=== PATIENT | female | born 1980 | race Caucasian/White ===

== ENCOUNTER → 2018-05-20 | Outpatient (CLI) | payer BC | END | disposition home or self-care (01) | LOC: LAB 06:30 → LAB SHORT 06:30 → LAB FUT 07-23 10:55 → EDSTATUS 07-23 10:55 | DX: K51.90 Ulcerative colitis, unspecified, without complications (principal) | CPT/HCPCS: 83993 ==

== ENCOUNTER 2019-01-30 00:18 | Day surgery (SDC) | payer BC ==
[2019-01-30] MEDS ORDERED: AZAT50 PO (14:44)
[2019-01-30] MEDS ORDERED: IMITREX100 MG PO (14:46)
[2019-01-30] MEDS ORDERED: MESALAMINE1.2 GM PO (14:47)
[2019-01-30] MEDS ORDERED: Zolpidem Tartrat5 MG PO (14:48)
[2019-01-30] MEDS ORDERED: TRIDERM28.4 GM TOP (14:49)
[2019-01-30] MEDS ORDERED: FLUC150A PO (14:49)
[2019-01-30] MEDS ORDERED: Remicade100 MG IV (14:52)
[2019-01-30] MEDS ORDERED: AMIT10 PO ×2 (15:12→15:13)
--- NOTE | 2019-01-30 15:42 | NUR ---
PT REPORTS SHE DOES NOT TAKE PRE MEDS.
[2019-01-30] MEDS ORDERED: THERA1 EACH PO (15:43)
[2019-01-30] MEDS ORDERED: OYSTER SHELL 51 EACH (15:44)
[2019-01-30] MEDS ORDERED: Vitamin D2000 UNIT PO (15:44)
[2019-01-30] MEDS ORDERED: EYE HEALTH ADU1 EACH PO (15:45)
== END 2019-01-30 17:20 | disposition home or self-care (01) ==
LOC: ATC 00:18
DX: K51.90 Ulcerative colitis, unspecified, without complications (principal); G43.909 Migraine, unspecified, not intractable, without status migrainosus; Z88.2 Allergy status to sulfonamides; Z79.899 Other long term (current) drug therapy
CPT/HCPCS: 96413; 96415; J1745; J7050

== ENCOUNTER 2019-03-27 02:15 | Day surgery (SDC) | payer BC ==
[~2019-03-27 02:15] MED LIST: AMIT10 PO; AZAT50 PO; EYE HEALTH ADU1 EACH PO; FLUC150A PO; IMITREX100 MG PO; MESALAMINE1.2 GM PO; OYSTER SHELL 51 EACH; Remicade100 MG IV; THERA1 EACH PO; TRIDERM28.4 GM TOP; Vitamin D2000 UNIT PO; Zolpidem Tartrat5 MG PO
--- NOTE | 2019-03-27 14:31 | NUR ---
Shellie declined her pre-medications today.
== END 2019-03-27 17:01 | disposition home or self-care (01) ==
LOC: ATC 02:15
DX: K51.90 Ulcerative colitis, unspecified, without complications (principal); R21 Rash and other nonspecific skin eruption; Z79.899 Other long term (current) drug therapy; Z88.2 Allergy status to sulfonamides
CPT/HCPCS: J1745; J7050

== ENCOUNTER 2019-04-30 13:17 | Emergency (ER) | payer BC ==
[~2019-04-30] VITALS: Ht 170.2 cm; Wt 59.9 kg
[2019-04-30 14:11] LABS: BASOPHILS ABSOLUTE AUTO 0.01 K/mm3 (0.00-0.23); BASOPHILS PERCENT AUTO 0 % (0-2); EOSINOPHILS ABSOLUTE AUTO 0.06 K/mm3 (0.00-0.68); EOSINOPHILS PERCENT AUTO 1 % (0-6); Hematocrit 37.4 % (33.0-51.0); Hemoglobin 12.5 g/dL (11.5-16.0); IMMATURE GRAN ABSOLUTE AUTO 0.03 K/mm3 (0.00-0.10); IMMATURE GRAN PERCENT AUTO 0 % (0-1); LYMPHOCYTES ABSOLUTE AUTO 1.26 K/mm3 (0.84-5.20); LYMPHOCYTES PERCENT AUTO 18 % (21-46); MONOCYTES ABSOLUTE AUTO 0.42 K/mm3 (0.16-1.47); MONOCYTES PERCENT AUTO 6 % (4-13); Mean Corpuscular HGB 34.4 pg (26.0-34.0); Mean Corpuscular HGB Conc 33.4 g/dL (31.5-36.5); Mean Corpuscular Volume 103 fL (80-100); Mean Platelet Volume 11.2 fL (9.1-12.4); NEUTROPHILS ABSOLUTE AUTO 5.27 K/mm3 (1.96-9.15); NEUTROPHILS PERCENT AUTO 75 % (41-73); Platelet Count 255 K/mm3 (150-400); RDW Coefficient Variation 14.3 % (11.7-14.2); RDW Standard Deviation 54.5 fL (35.1-46.3); Red Blood Cell Count 3.63 M/mm3 (3.80-5.20); White Blood Cell Count 7.05 K/mm3 (4.00-11.30)
[2019-04-30 14:30] LABS: Anion Gap 3 mmol/L (6-16); Blood Urea Nitrogen 6 mg/dL (8-24); CO2, Blood 28 mmol/L (21-32); Calcium, Blood 8.6 mg/dL (8.5-10.1); Chloride, Blood 106 mmol/L (98-108); Glucose, Blood 103 mg/dL (70-99); Potassium, Blood 3.7 mmol/L (3.5-5.5); Sodium, Blood 137 mmol/L (136-145)
[2019-04-30 14:34] LABS: Bun/Creatinine Ratio 11.8 (12.0-20.0); Creatinine, Blood 0.51 mg/dL (0.40-1.00); Glomerular Filtration Rate >60 (60-)
[2019-04-30] MEDS ORDERED: Roxicodone5 MG PO (16:50)
== END 2019-04-30 17:32 | disposition home or self-care (01) ==
LOC: ER 13:17
PROVIDERS: Physician Assistant
DX: G89.18 Other acute postprocedural pain (principal); R10.9 Unspecified abdominal pain; G43.909 Migraine, unspecified, not intractable, without status migrainosus; Z79.899 Other long term (current) drug therapy
CPT/HCPCS: 36415; 74176; 76856; 80048; 85025; 96361; 96374; 96375; 96376; 99284-25; J1170; J2405; J7030

== ENCOUNTER 2019-05-22 01:21 | Day surgery (SDC) | payer BC ==
[~2019-05-22 01:21] MED LIST changes: +Roxicodone5 MG PO
== END 2019-05-22 16:59 | disposition home or self-care (01) ==
LOC: ATC 01:21
DX: K51.90 Ulcerative colitis, unspecified, without complications (principal); M19.90 Unspecified osteoarthritis, unspecified site; G43.909 Migraine, unspecified, not intractable, without status migrainosus; Z79.899 Other long term (current) drug therapy
CPT/HCPCS: J1720; J1745; J7050

== ENCOUNTER 2019-07-17 00:51 | Day surgery (SDC) | payer BC | END 2019-07-17 16:49 | disposition home or self-care (01) | LOC: ATC 00:51 | DX: K51.90 Ulcerative colitis, unspecified, without complications (principal); Z79.899 Other long term (current) drug therapy; Z88.2 Allergy status to sulfonamides | CPT/HCPCS: 96413; 96415; J1745; J7050 ==

== ENCOUNTER 2019-11-06 00:39 | Day surgery (SDC) | payer BC | END 2019-11-06 16:55 | disposition home or self-care (01) | LOC: ATC 00:39 | DX: K51.90 Ulcerative colitis, unspecified, without complications (principal); R21 Rash and other nonspecific skin eruption; Z88.2 Allergy status to sulfonamides | CPT/HCPCS: 96413; 96415; J1745; J7050 ==

== ENCOUNTER 2019-11-25 06:22 | Day surgery (SDC) | payer BC ==
[~2019-11-25] VITALS: Ht 170.2 cm; Wt 62.5 kg
[~2019-11-25 06:22] MED LIST changes: +ACET325 PO; +DELZICOL400 M1 PO; +IBUP600 PO
== END 2019-11-25 09:18 | disposition home or self-care (01) ==
LOC: ORSCSDS 06:22
PROVIDERS: Orthopaedic Surgery
PROC: 0LB50ZZ Excision of Right Lower Arm and Wrist Tendon, Open Approach (ICD-10-PCS; principal; 2019-11-25 07:30)
DX: M67.431 Ganglion, right wrist (principal); F41.8 Other specified anxiety disorders; Z79.899 Other long term (current) drug therapy
CPT/HCPCS: 88304; J0171; J0690; J1100; J1885; J2250; J2405; J2704; J3010; J7120

== ENCOUNTER 2020-01-01 00:39 | Day surgery (SDC) | payer BC | END 2020-01-01 17:35 | disposition home or self-care (01) | LOC: ATC 00:39 | DX: K51.90 Ulcerative colitis, unspecified, without complications (principal); Z88.2 Allergy status to sulfonamides | CPT/HCPCS: 96413; 96415; J1745; J7050; Q5103 ==

== ENCOUNTER → 2021-05-24 | Outpatient (CLI) | payer BC | END | disposition home or self-care (01) | LOC: LAB SHORT 11:25 → LAB FUT 05-10 12:00 | DX: K51.90 Ulcerative colitis, unspecified, without complications (principal) | CPT/HCPCS: 83993 ==

== ENCOUNTER → 2021-08-22 | Outpatient (CLI) | payer BC | END | disposition home or self-care (01) | LOC: LAB SHORT 07:30 → PLD 07:30 | DX: D23.39 Other benign neoplasm of skin of other parts of face (principal) | CPT/HCPCS: 88305 ==

== ENCOUNTER 2021-12-14 07:46 | Day surgery (SDC) | payer BC ==
[~2021-12-14] VITALS: Ht 170.2 cm; Wt 64.8 kg
[2021-12-14] MEDS ORDERED: ACET325 (08:03)
[2021-12-14] MEDS ORDERED: FISH OIL 1,2001 EAC7 (08:04)
[2021-12-14] MEDS ORDERED: Diflucan150 MG (08:04)
[2021-12-14] MEDS ORDERED: AIMOVIG AU70 MG/1 ML (08:04)
--- NOTE | 2021-12-14 09:02 | NUR ---
12/14/21 0902 Madelin Barbosa PT. VERBALIZED IV WAS HURTING HER IN HER RIGHT WRIST. NO INFILTRATION OR REDNESS AT SITE. PT. WANTED IV TO BE RESTARTED. IV RESTARTED IN RAC WITH 20G. IV DISCONTINUED IN RIGHT WRIST & WRAPPED WITH COBAN AFTER PRESSURE HELD.
== END 2021-12-14 10:25 | disposition home or self-care (01) ==
LOC: ORSCSDS 07:46
PROVIDERS: Internal Medicine Gastroenterology
PROC: 0DBH8ZX Excision of Cecum, Via Natural or Artificial Opening Endoscopic, Diagnostic (ICD-10-PCS; principal; 2021-12-14 09:00)
PROC: 0DBP8ZX Excision of Rectum, Via Natural or Artificial Opening Endoscopic, Diagnostic (ICD-10-PCS; principal; 2021-12-14 09:00)
PROC: 0DBM8ZX Excision of Descending Colon, Via Natural or Artificial Opening Endoscopic, Diagnostic (ICD-10-PCS; principal; 2021-12-14 09:00)
PROC: 0DBN8ZX Excision of Sigmoid Colon, Via Natural or Artificial Opening Endoscopic, Diagnostic (ICD-10-PCS; principal; 2021-12-14 09:00)
PROC: 0DBL8ZX Excision of Transverse Colon, Via Natural or Artificial Opening Endoscopic, Diagnostic (ICD-10-PCS; principal; 2021-12-14 09:00)
PROC: 0DBK8ZX Excision of Ascending Colon, Via Natural or Artificial Opening Endoscopic, Diagnostic (ICD-10-PCS; principal; 2021-12-14 09:00)
DX: K51.90 Ulcerative colitis, unspecified, without complications (principal); Z83.71 Family history of colonic polyps; Z83.79 Family history of other diseases of the digestive system; D12.0 Benign neoplasm of cecum; E55.9 Vitamin D deficiency, unspecified; Z79.899 Other long term (current) drug therapy
CPT/HCPCS: 88305; J2001; J2704; J7120

== ENCOUNTER 2022-01-23 07:30 | Day surgery (SDC) | payer BC ==
[~2022-01-23] VITALS: Ht 170.2 cm; Wt 64.0 kg
[~2022-01-23 07:30] MED LIST changes: +ACET325; +AIMOVIG AU70 MG/1 ML; +Diflucan150 MG; +FISH OIL 1,2001 EAC7
[2022-01-23] MEDS ORDERED: PROM12.5S (08:00)
== END 2022-01-23 09:37 | disposition home or self-care (01) ==
LOC: ORSCSDS 07:30
PROVIDERS: Internal Medicine Gastroenterology
PROC: 0DD68ZX Extraction of Stomach, Via Natural or Artificial Opening Endoscopic, Diagnostic (ICD-10-PCS; principal; 2022-01-23 08:45)
DX: R12 Heartburn (principal); K44.9 Diaphragmatic hernia without obstruction or gangrene; Z80.0 Family history of malignant neoplasm of digestive organs; Z79.899 Other long term (current) drug therapy
CPT/HCPCS: 88305; 88342; J2704; J7120

== ENCOUNTER 2023-11-29 09:18 | Day surgery (SDC) | payer BC ==
[2023-11-29] VITALS (19 sets, daily range): BP systolic 92–135; BP diastolic 61–88
[~2023-11-29] VITALS: Ht 170.2 cm; Wt 59.9 kg
[~2023-11-29 09:18] MED LIST changes: +NS 500 ML IV SCH; +PROM12.5S
[2023-11-29] MEDS ORDERED: BABYBIG100 MG IV (09:35)
[2023-11-29] MEDS ORDERED: propofoL 20 ML IV ONE (10:04)
--- NOTE | 2023-11-29 10:31 | NUR ---
11/29/23 Larissa Yeh CONFIRMED AND REVIEWED H&P, MEDCICATIONS, ALLERGIES, MEDICAL HISTORY, RESPIRATORY HISTORY, VITAL SIGNS, 3-LEAD EKG, CONSENTS, AND PHYSICIAN ORDERS. PATIENT CONFIRMS NPO STATUS AND AGREES WITH SCHEDULED PROCEDURE. MONITOR INTACT WITH CONTINUOUS PULSE OXIMETRY, CAPNOGRAPHY, 3-LEAD EKG, INTERMITTENT BP. SUPPLEMENTAL O2 TO BE TITRATED THROUGHOUT PROCEDURE TO MAINTAIN O2 SATURATION ABOVE 90%. PATIENT DETERMINED TO BE ASA APPROPRIATE FOR PROPOFOL SEDATION PRIOR TO START OF PROCEDURE BY DR. GALVAN.
[2023-11-29] MEDS ORDERED: Midazolam HCl 1MG / ML 2ML Vial ONE (10:43)
--- NOTE | 2023-11-29 11:09 | NUR ---
REPORT RECEIVED FROM JAKUB BROWER. VSS. PT ON RA. PT A&OX4. PT ABLE TO REPOSITION SELF IN BED. PT REQUESTING PO FOOD AND FLUIDS AND TOLERATING THEM WELL. PT DENIES PAIN, NAUSEA OR OTHER DISCOMFORTS.
== END 2023-11-29 11:30 | disposition home or self-care (01) ==
LOC: ORSCMMR 09:18 → ORSCSDS 10:30 → ORSCMMR 10:30 → ORSCSDS 12:00
PROVIDERS: Internal Medicine Gastroenterology
PROC: 0DBN8ZX Excision of Sigmoid Colon, Via Natural or Artificial Opening Endoscopic, Diagnostic (ICD-10-PCS; principal; 2023-11-29 10:30)
PROC: 0DBM8ZX Excision of Descending Colon, Via Natural or Artificial Opening Endoscopic, Diagnostic (ICD-10-PCS; principal; 2023-11-29 10:30)
PROC: 0DBL8ZX Excision of Transverse Colon, Via Natural or Artificial Opening Endoscopic, Diagnostic (ICD-10-PCS; principal; 2023-11-29 10:30)
PROC: 0DBH8ZX Excision of Cecum, Via Natural or Artificial Opening Endoscopic, Diagnostic (ICD-10-PCS; principal; 2023-11-29 10:30)
PROC: 0DBP8ZX Excision of Rectum, Via Natural or Artificial Opening Endoscopic, Diagnostic (ICD-10-PCS; principal; 2023-11-29 10:30)
DX: K51.00 Ulcerative (chronic) pancolitis without complications (principal); Z86.0101 Personal history of adenomatous and serrated colon polyps; Z80.0 Family history of malignant neoplasm of digestive organs; Z83.719 Family history of colon polyps, unspecified; K57.30 Diverticulosis of large intestine without perforation or abscess without bleeding; R74.01 Elevation of levels of liver transaminase levels; E55.9 Vitamin D deficiency, unspecified; Z79.82 Long term (current) use of aspirin; Z79.899 Other long term (current) drug therapy
CPT/HCPCS: 88305; J2250; J2704; J7030

== ENCOUNTER → 2024-03-12 | Outpatient (CLI) | payer BC ==
[~2024-03-12] MED LIST changes: +BABYBIG100 MG IV; -NS 500 ML IV SCH
[2024-03-14 17:45] LABS: CALPROTECTIN,FECAL 24 ug/g (<=49)
== END ==
LOC: LAB 08:50 → LAB SHORT 08:50
PROVIDERS: Nurse Practitioner Family
DX: K51.00 Ulcerative (chronic) pancolitis without complications (principal)
CPT/HCPCS: 83993